=== PATIENT | female | born 2000 | race Caucasian/White ===

== ENCOUNTER 2020-06-07 20:50 | Emergency (ER) | payer MEDICAID ==
[~2020-06-07] VITALS: Ht 157.5 cm; Wt 53.0 kg
[2020-06-07 22:00] LABS: CLARITY URINE CLOUDY (CLEAR); COLOR URINE DARK YELLOW (YELLOW); KETONES URINE 2+ (NEGATIVE); LEUKOCYTE ESTERASE URINE TRACE (NEGATIVE); NITRITE URINE NEGATIVE (NEGATIVE); OCCULT BLOOD URINE 3+ (NEGATIVE); PROTEIN URINE 2+ (NEGATIVE); SPECIFIC GRAVITY URINE 1.035 (1.005-1.030)
[2020-06-08] MEDS ORDERED: CEFTRIAXONE SODIUM 250 MG/VIAL IV ONE (00:15)
[2020-06-08] MEDS ORDERED: AZITHROMYCIN 500 MG TABLET PO ONE (00:15)
[2020-06-08] MEDS ORDERED: ACETAMINOPHEN 325MG TABLET PO PRN (00:15)
[2020-06-08] MEDS ORDERED: ONDANSETRON HCL 4MG/2ML INJ IV ONE (00:15)
[2020-06-08 00:38] LABS: BASOPHILS % 0.3 % (0.0-2.0); EOSINOPHILS % 0.1 % (0.0-5.0); HEMOGLOBIN. 13.5 g/dL (12.0-16.0); LYMPHOCYTES % 8.8 % (20.0-50.0); MEAN CORPUSCULAR HEMOGLOBIN 31.7 pg (28.0-32.0); MEAN CORPUSCULAR VOLUME 91.4 fL (81.0-99.0); MEAN PLATELET VOLUME 9.3 fl (7.4-10.4); MONOCYTES % 2.6 % (2.0-8.0); NEUTROPHILS % 88.2 % (40.0-76.0); PLATELET 204 x1000/uL (130-400); RED BLOOD CELL COUNT 4.26 mill/uL (4.2-5.4); RED CELL DISTRIBUTION WIDTH 13.5 % (11.6-14.6)
[2020-06-08 00:45] LABS: CHLORIDE 106 mEq/L (98-107)
[2020-06-08] MEDS ORDERED: SODIUM CHLORIDE 0.9% 1,000 ML IV ONE (00:45)
[2020-06-08 01:09] LABS: B-HCG QUANTITATIVE 27870 mIU/mL (<3)
[2020-06-08] MEDS ORDERED: CEFTRIAXONE SODIUM 250 MG/VIAL IM NR (01:15)
[2020-06-08 02:40] VITALS: BP 100/58
== END 2020-06-08 04:18 | disposition home or self-care (01) ==
LOC: ER 20:50
DX: O20.0 Threatened abortion (principal); O23.31 Infections of other parts of urinary tract in pregnancy, first trimester; Z3A.01 Less than 8 weeks gestation of pregnancy; A63.8 Other specified predominantly sexually transmitted diseases
CPT/HCPCS: 36415; 76801; 76817; 80053; 81003; 81025; 84702; 85025; 86850; 86900; 86901; 96372; 96374; 99284; J0696; J2405; J7030